=== PATIENT | male | born 1980 | race Caucasian/White ===

== ENCOUNTER 2024-11-28 17:26 | Emergency (ER) | payer BC, SELFPAY ==
--- NOTE | 2024-11-28 17:36 | ED_ITS ---
HPI - General Adult General Chief complaint: General Medical Stated complaint: food stuck in throat Time Seen by Provider: 11/28/24 20:24 Source: patient, RN notes reviewed and old records reviewed Mode of arrival: ambulatory Limitations: no limitations History of Present Illness ED Provider: Anamika HPI narrative: 44-year-old male presents for evaluation of I think there is steak stuck in my throat. Patient reports that he had several bites of steak prior to arrival. He reports on the 2nd bite he felt as if a piece got stuck in his chest. he states that this has happened before but not as severe he has tried to drink water but everything has come back up he has never had any endoscopy he reports that his father has similar issues Related Data Allergies Allergy/AdvReac Type Severity Reaction Status Date / Time No Known Allergies Allergy Verified 11/28/24 17:38 [No Known Allergies*] Review of Systems 2 Constitutional: Constitutional: Denies body ache(s), Denies chills, Denies fever(s) and Denies headache(s) Eyes: Eyes: Denies blurry vision ENT: Denies vertigo, Denies dizziness and Denies headache(s) Comments: feels something stuck in throat Cardiovascular: Cardiovascular: Denies chest pain and Denies dyspnea Respiratory: Respiratory: Denies dyspnea Neurologic: Denies vertigo, Denies dizziness and Denies headache(s) PMF Social History Social History Smoked in Last 30 Days: No Use of substances other than those prescribed or required for medical reasons: No Advance Directives: No Advance Directives Information Provided: Yes Do you have a plan to hurt others: No Plan Physical Exam ED Vital Signs: Vital Signs - 24 hr 11/28/24 17:37 11/28/24 17:45 11/28/24 18:55 Temperature 98 F 98.4 F 97.7 F Pulse Rate 90 80 78 Respiratory Rate 16 14 18 Blood Pressure 151/91 H 145/98 H 127/86 Pulse Oximetry 98 97 95 Oxygen Delivery Method Room Air Room Air Room Air 11/28/24 20:14 11/28/24 20:45 Temperature 97.3 F 97.3 F Pulse Rate 67 67 Respiratory Rate 16 16 Blood Pressure 121/76 121/76 Pulse Oximetry 96 96 Oxygen Delivery Method Room Air Room Air BMI result Body Mass Index 25.8 Const General: healthy appearing, comfortable, no acute distress, alert and awake Nutritional Appearance: well nourished Orientation/consciousness: patient oriented x3 HENMT Head: Yes normocephalic and Yes atraumatic Eyes Eyelids: Yes eyelids normal Conjunctivae: conjunctivae normal Sclerae: sclerae normal Corneas: corneas normal Pupils: Equal, round and reactive pupils present EOM: EOMs intact bilaterally Neck Neck: Yes full ROM Resp Effort & Inspection: normal respiratory effort, able to speak in complete sentences and not labored Skin General skin exam: elasticity normal Neuro General: patient oriented x3 Cranial nerves: Yes Equal, round and reactive pupils present and Yes Bilaterally intact EOM present Cognition (Neuro): normal cognition Extrem Other: Moving all extremities well without any obvious deformities Course Course Course Narrative: RME performed by Renetta Edwards PA-C. Patient is a 44 year old assigned male at presenting to the emergency department with a piece of food stuck in his esophagus. Detailed physical exam and review of systems are deferred to the practice clinician. director radio news aware. Medications Administered Discontinued Medications Generic Name Dose Route Start Last Admin Trade Name Yen PRN Reason Stop Dose Admin Glucagon 1 mg 11/28/24 17:40 11/28/24 18:02 Glucagon Hcl 1 Mg Vial IVPUSH 11/28/24 17:41 1 mg ONCE ONE Administration Ondansetron HCl 4 mg 11/28/24 18:17 11/28/24 18:22 Ondansetron Hcl 4 Mg/2 Ml Vial IVPUSH 11/28/24 18:18 4 mg ONCE ONE Administration Medical Decision Making Medical Decision Making [facility] Narrative: 44-year-old healthy male presents for evaluation of a foreign body sensation in his throat. He was eating steak when he became acutely unable to swallow. He received IV glucagon from triage and some Zofran. He has been in the ER for approximately 3 hours before my evaluation and he reports that the foreign body sensation has resolved. I had him drink a glass of water in front of me and he was able to do so without any difficulty. At this time the patient is stable for discharge and he will be referred to GI for endoscopy and possible dilatation if there are any strictures or dysmotility. he was strongly encouraged to consume very small bites of food Differential Diagnosis Differential Diagnoses: The differential diagnosis associated with the presentation includes esophageal dysmotility Achalasia Food bolus esophageal stricture Lab Data 11/28/24 18:00 11/28/24 18:00 Labs: Lab Results 11/28/24 Range/Units 18:00 WBC 7.1 (4.8-10.8) X10*3/uL RBC 4.88 (4.60-5.80) X10*6/uL Hgb 14.3 (14.0-18.0) g/dl Hct 42.4 (42.0-52.0) % MCV 86.9 (80.0-98.0) fL MCH 29.3 (27.0-33.0) pg MCHC 33.7 (31.0-36.0) g/dl RDW 12.1 (11.0-16.0) % Plt Count 326 (160-400) X10*3/uL MPV 9.4 (9.4-12.4) fL Immature Gran % (Auto) 0.3 (0.0-0.4) % Neut % (Auto) 59.6 (45-73) % Lymph % (Auto) 27.8 (20-40) % [place] % (Auto) 7.2 (2-11) % Eos % (Auto) 4.8 H (0-4) % Baso % (Auto) 0.3 (0-2) % Lymph # (Auto) 2.0 (1.2-4.9) X10*3/uL [place] # (Auto) 0.5 (0.1-1.2) X10*3/uL Eos # (Auto) 0.3 (0.0-0.4) X10*3/uL Baso # (Auto) 0.0 (0.0-0.2) X10*3/uL Abs Immat Gran (auto) 0.02 (0.00-0.03) X10*3/uL Absolute Neuts (auto) 4.2 (2.0-8.3) x10*3/uL Absolute Nucleated RBC 0.000 (0.0-0.012) X10*3/uL Nucleated RBC % (auto) 0.0 (0.0-0.2) /100WBC Sodium 140 (135-145) mmol/L Potassium 3.6 (3.3-5.1) mmol/L Chloride 102 (96-108) mmol/L Carbon Dioxide 28 (22-29) mmol/L Anion Gap 14 (12-20) BUN 17 H (9-16) mg/dL Creatinine 1.19 (0.5-1.4) mg/dL Estim Creat Clear Calc 90.1 Estimated GFR > 60 Random Glucose 121 H (60-115) mg/dL Calcium 9.7 (8.4-10.2) mg/dL Magnesium 1.9 (1.6-2.6) mg/dL Total Bilirubin 0.4 (0.0-1.0) mg/dL AST 20 (5-37) U/L ALT 15 (0-40) U/L Alkaline Phosphatase 60 (39-117) U/L Total Protein 7.8 (6.5-8.0) g/dL Albumin 4.5 (3.5-5.0) g/dL Discharge Plan Discharge Clinical Impression: Esophageal dysmotility Patient Disposition: Home, Self-Care Instructions: Food Impaction (ED) Additional Instructions: It is likely that you had a food impaction due to either scar tissue or in esophagogastric junction that does not open all the way. I recommend sticking to a liquid diet and very small bites of food you need to follow up with GI at the number provided, call tomorrow as you will likely need an endoscopy Referrals: Marty Argueta MD [Physician] - (esophageal dysmotility. ?emdoscopy) Interventions: ED Discharge Assessment Last Done: 11/28/24 20:45 Discharge Date/Time: 11/28/24 20:49 Print Language: Norwegian
[2024-11-28 17:37] VITALS: BP 151/91; PULSE 90; RESP 16; TEMP 36.6; O2SAT 98; BMI 25.8
[2024-11-28 17:45] VITALS: BP 145/98; PULSE 80; RESP 14; TEMP 36.9; O2SAT 97
[2024-11-28] MEDS: glucagon HCL 1 MG VIAL IVPUSH (18:02)
[2024-11-28 18:07] LABS: MANUAL DIFF FLAG NO
[2024-11-28 18:11] LABS: Basophils Percent Auto 0.3 % (0-2); Eosinophils Absolute Auto 0.3 X10*3/uL (0.0-0.4); Eosinophils Percent Auto 4.8 % (0-4); Hematocrit 42.4 % (42.0-52.0); Hemoglobin 14.3 g/dl (14.0-18.0); Imm Gran Abs Auto 0.02 X10*3/uL (0.00-0.03); Imm Gran Pct Auto 0.3 % (0.0-0.4); Lymphocytes Percent Auto 27.8 % (20-40); Mean Corpuscular HGB Conc 33.7 g/dl (31.0-36.0); Mean Corpuscular Hemoglobin 29.3 pg (27.0-33.0); Mean Corpuscular Volume 86.9 fL (80.0-98.0); Mean Platelet Volume 9.4 fL (9.4-12.4); Monocytes Absolute Auto 0.5 X10*3/uL (0.1-1.2); Monocytes Percent Auto 7.2 % (2-11); Neutrophils Absolute Auto 4.2 x10*3/uL (2.0-8.3); Neutrophils Percent Auto 59.6 % (45-73); Platelet Count 326 X10*3/uL (160-400); Red Blood Count 4.88 X10*6/uL (4.60-5.80); Red Cell Distribution Width 12.1 % (11.0-16.0); White Blood Count 7.1 X10*3/uL (4.8-10.8)
[2024-11-28] MEDS: ondansetron HCL 4 MG/2 ML VIAL IVPUSH (18:22)
[2024-11-28 18:30] LABS: Alanine Aminotransferase 15 U/L (0-40); Albumin Level 4.5 g/dL (3.5-5.0); Anion Gap 14 (12-20); Aspartate Amino Transferase 20 U/L (5-37); Bilirubin Total 0.4 mg/dL (0.0-1.0); Blood Urea Nitrogen 17 mg/dL (9-16); Calcium 9.7 mg/dL (8.4-10.2); Carbon Dioxide 28 mmol/L (22-29); Chloride 102 mmol/L (96-108); Creatinine Clr Calc Pharmacy 90.1; Estimated Glomerular Filt Rate > 60; Glucose Random 121 mg/dL (60-115); Magnesium 1.9 mg/dL (1.6-2.6); Potassium 3.6 mmol/L (3.3-5.1); Sodium 140 mmol/L (135-145); Total Protein 7.8 g/dL (6.5-8.0)
--- NOTE | 2024-11-28 18:35 | PC.NURSE ---
Patient A&O x 4. Patient presented to ED c/o food being stuck in throat. Denies SOB, O2 97% RA. Patient c/o chest discomfort rated 3/10. Patient vomited a large amount non bloody at restaurant. Patient continues to be nauseous. 20G in left FA. IV zofran given with good effect. No episodes of vomiting while in ED. Parents are at bedside. Plan of care on going
[2024-11-28 18:38] LABS: Alkaline Phosphatase 60 U/L (39-117)
[2024-11-28 18:55] VITALS: BP 127/86; PULSE 78; RESP 18; TEMP 36.5; O2SAT 95
[2024-11-28 20:14] VITALS: BP 121/76; PULSE 67; RESP 16; TEMP 36.3; O2SAT 96
--- NOTE | 2024-11-28 20:14 | PC.NURSE ---
pt states he is feeling much better after medication administration and would like to go home. waiting to be seen by ED provider at this time.
--- NOTE | 2024-11-28 20:25 | PC.NURSE ---
KIMBERLY Nunez made aware that patient feels better and is ready to go home. Pt given water cup to see if he can tolerate po well.
[2024-11-28 20:45] VITALS: BP 121/76; PULSE 67; RESP 16; TEMP 36.3; O2SAT 96
== END 2024-11-28 20:49 | disposition home or self-care (01) ==
PROVIDERS: Physician Assistant Medical; Emergency Provider Emergency Medicine Emergency Medical Services; PCP Family Medicine
DX: K22.4 Dyskinesia of esophagus (principal); R09.89 Other specified symptoms and signs involving the circulatory and respiratory systems; Z79.899 Other long term (current) drug therapy
CPT/HCPCS: 36415; 80053; 83735; 85025; 96374; 99284; J1610; J2405

== ENCOUNTER 2025-04-20 13:05 | Outpatient (AMB) | payer BC, SELFPAY ==
--- NOTE | 2025-04-20 13:10 | A.OFFVIS_ITS ---
Vital Signs 04/20/25 13:12 Height 6 ft 2 in Weight 200 lb 9.93 oz BMI 25.8 BP 129/81 Blood Pressure Location Lt brachial Position Sitting Pulse 76 Intake Visit Reasons: hyperlipidemia Intake Note: Roberto Carlos presents in the office as a follow up for hyperlipidemia. CC: STates that on mothers day he had choking and choked bad to brought the the ED. States he has it when it runs in his family for narrowing of the esophgus. Father has the same issue and always needs to have the EGD with Dilation. Court Manager Required: No Allergies No Known Allergies (No Known Allergies*) Allergy (Verified 04/20/25 13:11) HPI HPI hyperlipidemia: Details: 44 years old male with no significant past medical history is here today for initial consultation. Patient was sent to us by his PCP for evaluation of his dysphagia. Patient was seen on mother's Day in the ER for choking a mistake. Patient reports that the 1st bites that he took of the stay got lodged in his lower esophagus. Patient was given glucagon 1 mg IV and Zofran 4 mg IV. Patient states for 3 hours in the ER and past swallow test done at bedside by RN patient was sent home. Patient reports that he does have a trouble swallowing mainly rice, bread, meat. Patient does admit that he eats very fast. He was told before chew his food better and swallow slowly. Patient denies any nausea or vomiting. Patient reports that when he feels that the food gets stuck he many times make himself vomit to get the food out. Patient denies having any of acid reflux. Denies dyspepsia or odynophagia. Patient reports he is moving his bowels well. Otherwise patient denies having any GI concerning symptoms. Patient is up-to-date with colonoscopy had one last year. [facility], [facility] Medical History (Updated 04/20/25 @ 20:12 by DAVIE Osullivan) Dysphagia Surgical History (Updated 04/20/25 @ 13:13 by YUE Andrade) Hx of colonoscopy Review of Systems Const Denies weight gain and Denies weight loss ENT Reports no additional complaints, Reports dysphagia and Denies odynophagia Card Reports no additional complaints Resp Reports no additional complaints GI Denies abdominal pain, Denies belching, Denies melena, Denies bloating, Denies change in bowel habits, Reports dysphagia, Denies excessive flatus, Denies dyspepsia, Denies heartburn, Denies diarrhea, Denies loose stools, Denies nausea, Denies odynophagia and Denies vomiting Reports no additional complaints Musc Reports no additional complaints Neuro Reports no additional complaints Psych Reports no additional complaints Endo Reports no additional complaints Physical Exam Vital Signs: Last Vital Signs Pulse 76 04/20/25 13:12 BP 129/81 04/20/25 13:12 BMI result Body Mass Index 25.8 Const General: healthy appearing, no acute distress and well developed Nutritional Appearance: well nourished Orientation/consciousness: patient oriented x3 Resp Effort & Inspection: normal respiratory effort, able to speak in complete sentences, no tracheal deviation and symmetric chest movement Auscultation: clear to auscultation bilaterally Cardio Rate: regular rate GI Inspection: Yes normal to inspection and No distended Palpation (GI): Soft to palpation, not firm, nontender and No hepatosplenomegaly present Auscultation: normal bowel sounds General: Yes no CVA tenderness Back/Spine/Pelvis Back: no CVA tenderness Skin General skin exam: elasticity normal, turgor normal and dry skin Neuro General: patient oriented x3 Psych Appearance: grossly normal Mental Status: mental status grossly normal Assessment & Plan Assessment & Plan (1) Dysphagia: Code(s): R13.10 - Dysphagia, unspecified Category: Medical Qualifiers: Dysphagia type: esophageal phase Qualified Code(s): R13.19 - Other dysphagia Plan Patient will be scheduled for upper endoscopy to rule out Schatzki ring, esophageal narrowing, achalasia, esophagitis. Patient will be sent for upper GI with barium swallow. We can rule out esophageal spasm, reflux, hiatal hernia/paraesophageal hernia. I will start him on omeprazole daily. Patient's insurance does not cover this medication. Script sent to [facility] and patient will use good Rx coupon. Discussed with patient the importance of chewing his food and swallowing slowly. Drinking water with every bite. I voiced dietary triggers only 10 seconds. Staying upright for minimum 3 hours after meals discussed with patient. I will see patient after the procedure, sooner on as needed basis. Patient is agreeable to current plan of care and verbalizes understanding of instructions. He was given the opportunity to ask questions and all questions answered. Thank you for allowing me to participate in his care Orders: Orders FL upper GI w air w Ba Swallow Today K21.9 - Gastro-esophageal reflux disease without esophagitis Referrals GI Procedure Notification R13.10 - Dysphagia, unspecified Medications: New omeprazole 20 mg PO DAILY 30 caps 3RF K21.9 - Gastro-esophageal reflux disease without esophagitis omeprazole 20 mg PO DAILY 30 caps 3RF K21.9 - Gastro-esophageal reflux disease without esophagitis Coding Level of Care Code New Pt Level 3 (98381) Diagnoses Esophageal dysphagia R13.19 Dysphagia type: esophageal phase Time Spent (min) 40 Comment 30 minutes spent with patient and additional 10 minutes spent reviewing his records
[2025-04-20 13:12] VITALS: BP 129/81; PULSE 76; BMI 25.8
--- OUTSIDE RECORDS SUMMARY | 2025-04-20 14:23 | XMS_ITS | Clinical Summary ---
Author Organization [facility] Address [address] [place] [phone] Phone Care Team Providers Care Manager Net Name Role Phone Davie Ayoub MD Primary Care Provider [phone] Allergies No known active allergies Medications cholecalciferol (VITAMIN D3) 25 MCG (1,000 unit) tablet Take 1,000 Units by mouth daily. Active Active Problems Problem Noted Date Diagnosed Date Adenomatous polyp of descending colon 11/09/2024 Overview (11/09/2024): Rectal polyps x 2 Abnormal fasting glucose 11/04/2023 Other hyperlipidemia 11/04/2023 Assessment & Plan (11/22/2024 2:01 PM EDT): Orders: Lipid panel; Future I reviewed indications for starting statin. His LDL is greater than 200. He is at higher risk for CV events. With that in mind he would like to give lifestyle changes a chance and I offered this is an option. He will continue to work on portion size and try and make better food selections. Repeat fasting lipid panel in 4 months I will get back to them with recommendations. I recommended statin but he declines today. Multiple nevi 11/04/2023 Overview (11/04/2023): Sees produce service team member at [facility] annually Resolved Problems Problem Noted Date Diagnosed Date Resolved Date Mild depression 07/03/2018 11/04/2023 Immunizations Immunization Administration Dates Next Due Influenza Quadrivalent MDCK Preservative Free IM 05/30/2022 Influenza Quadrivalent Preservative Free IM 04/20,04/17/2020 Influenza Quadrivalent w/ Preservative IM 2016 Influenza, Unspecified Formulation 05/06/2018 Td (adult),2 Lf Tetanus Toxoid, PF, Adsorbed Tdap 12/02/2012 Family History Medical History Relation Comments No Known Problems Brother 1 No Known Problems Brother 2 Arrhythmia Father Pacemaker Father Lung disease Maternal Grandfather No Known Problems Mother Anxiety disorder Paternal Grandmother Stroke Paternal Grandmother No Known Problems Sister No Known Problems Son 1 No Known Problems Son 2 Relation Status Comments Brother 1 Alive Brother 2 Alive Father Alive Maternal Grandfather Maternal Grandmother Alive Mother Alive Paternal Grandfather Paternal Grandmother Sister Alive Son 1 Alive Son 2 Alive Social History Tobacco Use Types Packs/Day Years Used Date Smoking Tobacco: Never Smokeless Tobacco: Never Tobacco Cessation:Counseling Given: Not Answered Alcohol Use Standard Drinks/Week Comments Yes 0 (1 standard drink = 0.6 oz pure alcohol) socially, very rare. Couple times a month Child or Family Care Answer Date Record ed Do you have problems with on e of the following making it difficult for you to work, study, or receive health care? No 11/09/2024 Education Answer Date Recorded Are you interested in help w ith more adult education (for example, completing high school, GED, job training, learning the [place] language, technical skills, or developing parenting skills)? No 11/09/2024 Are you concerned about learning? Not on file 11/09/2024 No 11/09/2024 Yes 11/09/2024 Food Answer Date Recorded Within the past 6 months we worried whether our food would run out before we got money to buy more. Never True 11/09/2024 Within the past 6 months the food we bought just didn't last and we didn't have enough money to get more. Never True Residential Stability Answer Date Recor ded What is your housing situation today? I have calos sing 11/09/2024 How many times have you move d in the past 12 months? Zero (I did not move) 11/09/2024 Paying for Meds Answer Date Recorded Do you have trouble paying for medicines? No 11/09/2024 Paying Utility Bills Answer Date Record ed Do you have trouble paying your heating or elect ricity bill? No 11/09/2024 Transportation Answer Date Recorded Has the lack of transportati on kept you from medical appointments or from getting medications? No 11/09/2024 Unemployment Answer Date Recorded Are you currently unemployed or working on a part-time or temporary basis, and looking for work? No 10/22/2022 Digital Access Answer Date Recorded No 11/09/2024 Yes 11/09/2024 Do you have reliable internet access at home? Ye s 11/09/2024 Do you have a device (e.g., phone, tablet, computer) with a working camera? Yes 11/09/2024 Intimate Partner Violence Answer Date R ecorded Denied Basic Needs Not on file 11/09/2024 In the past 12 months have y ou been in a relationship with a person who hurts, threatens, or tries to control you? No 11/09/2024 Worried food would run out Not on file 11/09 In the past 12 months have y ou been in a relationship with a person who hurts, threatens, or tries to control you? No 11/09/2024 Sex and Gender Information Value Date Recorded Sex Assigned at Not on file Legal Sex Male 10:30 PM EDT Gender Identity Not on file Sexual Orientation Not on file Last Filed Vital Signs Vital Sign Reading Time Taken Comments Blood Pressure 120/78 11/09/2024 7:44 AM EDT Pulse 81 11/09/2024 7:44 AM EDT Temperature 36.2 C (97.1 F) 11/09/2024 7:44 AM EDT Respiratory Rate 16 09/14/2019 2:02 PM EST Oxygen Saturation 97% 11/09/2024 7:44 AM EDT Inhaled Oxygen Concentration - - Weight 95.1 kg (209 lb 9.6 oz) 11/09/2024 7:44 A M EDT Height 185 cm (6' 0.84 ) 11/09/2024 7:44 AM EDT Body Mass Index 27.78 11/09/2024 7:44 AM EDT Plan of Treatment Upcoming Encounters Date Type Department Care Team (Late st Contact Info) Description 11/14/2025 8:00 AM EDT Office Visit [facility] Medicine [address] [place] [address] [place] [address] Davie Ayoub MD [address] [place] [address] [email or web address] Health Maintenance Due Date Last Done Comments COLOGUARD 2023 FIT TEST 2023 FOBT 2023 SIGMOIDOSCOPY 2023 VIRTUAL COLONOSCOPY 2023 INFLUENZA VACCINE (#1) 2025 , 05/01/2021, 04/17/2020, Additional history exists COVID-19 VACCINE (2024- season) 2025 05/30/2022, 06/21/2021, 10/29/2020 DEPRESSION SCREENING 11/09/2025 11/09/2024, 05/08/20 18 SCREENING FOR DIABETES 11/10/2027 11/09/2024, 2024 LIPID PANEL 11/09/2029 11/09/2024, 04/21, 11/04/2023, Additional history exists Adult Td,Tdap Booster 11/12/2029 11/13/2019, 013 COLONOSCOPY 03/08/2031 03/08/2024 COLORECTAL CANCER SCREENING 03/08/2031 HEPATITIS C SCREENING Completed 10/10/2020 HIV ONE-TIME SCREENING (18-65 YEARS) Completed 10/10/2020 SMOKING STATUS SCREENING (Once After 26 Yrs) Completed 11/09/2024 HEPATITIS A VACCINES Aged Out No long er eligible based on patient's age to complete this topic HIB VACCINES Aged Out No longer eligi ble based on patient's age to complete this topic MENINGOCOCCAL VACCINES (ACWY) Aged Out No longer eligible based on patient's age to complete this topic MENINGOCOCCAL VACCINES (B) Aged Out N o longer eligible based on patient's age to complete this topic PNEUMOCOCCAL VACCINES (0-49 years) Aged Out No longer eligible based on patient's age to complete this topic Medical Devices Not on file Procedures Procedure Name Priority Date/Time Associated Diagnosis Comments LIPID PANEL Routine 11/09/2024 8:16 AM EDT Other hyperlipidemia COLONOSCOPY FOR RESULT ENTRY ONLY Routine 03/08/2024 2:07 PM EDT HEPATITIS C ANTIBODY, QUALITATIVE Routine 10/10/2020 10:22 AM EDT Routine general medical examination at a health care facility from Last 3 Months or Most Recently Relevant to Health Maintenance Results * (ABNORMAL) Lipid panel (11/09/2024 8:16 AM EDT) HDL 43 mg/dL [facility] Comment: Interpretation <40 mg/dL: Low HDL cholesterol (major risk factor for CHD) Greater than or equal to 60 mg/dL: High HDL cholesterol ( negative risk factor for CHD) HDL - cholesterol is affected by a number of factors, e.g. smoking, excerise, hormones, sex and age. CHOLESTEROL 266(H) 0 - 240 mg/dL [facility] TRIGLYCERIDES 108 30 - 160 mg/dL [facility] LDL 201(H) 50 - 129 mg/dL [facility] Comment: LDL levels in terms of risk for coronary heart disease: <100 mg/dL: Optimal 100-129 mg/dL: Near or above optimal 130-159 mg/dL: Borderline high 160-189 mg/dL: High >190 mg/dL: Very High CARDIAC RISK RATIO 6.2(H) 3.4 - 5.0 C [facility] Blood 11/09/2024 8:16 AM EDT 11/09/2024 8:25 AM EDT Davie Ayoub MD LAB BLOOD ORDERABLES Final Result [address] [id number] * COLONOSCOPY FOR RESULT ENTRY ONLY (03/08/2024 2:07 PM EDT) us Viky Provider HEALTH MAINTENANCE Edited Result - Final * Hepatitis C antibody, qualitative (10/10/2020 10:22 AM EDT) HCV NON-REACTIV E NON-REACTI VE [facility] Blood 10/10/2020 10:2 2 AM EDT 10/10/2020 10:26 AM EDT us Lani Mota NP LAB BLOOD ORDERABLES Final Resu lt [facility] [address] [place] [address] from Last 3 Months or Most Recently Relevant to Health Maintenance Insurance [employer] [facility] [employer] [facility] [employer] [facility] [employer] [facility] [employer] [facility] [employer] [facility] Care Teams Manager Net Relationship Specialty Start Date End Date Davie Ayoub MD [address] [place] [address], [address] [place] [address] [email or web address] PCP - General Family Medicine 09/24/23 Additional Source Comments The information contained in this document represents components of the legal health record. It is not the complete legal health record.[facility]
--- OUTSIDE RECORDS SUMMARY | 2025-04-20 14:23 | XMS_ITS ---
Author Name Juliana Wen Address Unknown Organization [facility] Care Team Providers Care Relief Mate Name Role Phone Unavailable Primary Care Physician Unavailab le History Of Present Illness This is a 44 year old male who is an established patient who is being seen for an evaluation of skin lesions.Location: body throughoutDuration: yearsPertinent Negatives: no history of previous skin cancer, no history of melanoma, and no family history of melanomaAdditional Visit Reasons: education and counseling about sun exposure, evaluation for suspicious growths, and evaluation of current neviAdditional History: Patient presents for a complete skin examination. Denies any areas of concern today.Of note: may need a refill of ciclopirox Medications Medication Generic Name RxNorm Strength Strength Unit Route Dose Dose Form Frequency Date Started Date Ended Status Indication Sig ciclopirox ciclopir ox 382721 0.77 % Topica l cream BID 05/05/20 19 suspend ed TINEA VERSICOLOR Appl y am and pm rash uppe r back and shou lder for 4 week s unti l silviano r ciclopirox ciclopir ox 535153 0.77 % Topica l small amoun t cream PRN 12/01/19 24 active Appl y AM and PM to [facility] hes on back and shou lder s for 4 week s unti l silviano r Ciclopirox Olamine NULL 10/04/19 16 suspend ed Oxistat NULL 12/17/19 12 active PredniSONE NULL 10/04/19 16 active Problems Problem Code Type Status Date of Diagnosis Date of Resolution Neoplasm of uncertain behavior of skin (disorder) 65076604(SN OMED) Diagnosis active 04/18/2025 Hemangioma of skin and subcutaneous tissue (disorder) 710942697(S NOMED) Diagnosis active 04/18/2025 Seborrheic keratosis (disorder) 474888036(S NOMED) Diagnosis active 04/18/2025 Disorder of pigmentation (disorder) 632968302(S NOMED) Diagnosis active 04/18/2025 Melanocytic nevus of trunk (disorder) 854097784(S NOMED) Diagnosis active 04/18/2025 Melanocytic nevus of right upper limb (disorder) 778957843(S NOMED) Diagnosis active 04/18/2025 Patient encounter status (finding) 533625430(S NOMED) Diagnosis active 04/18/2025 Pityriasis versicolor (disorder) 25209204(SN OMED) Diagnosis active 04/18/2025 Surgical follow-up (finding) 386698795(S NOMED) Diagnosis active 05/21/2024 Neoplasm of uncertain behavior of skin (disorder) 38648661(SN OMED) Diagnosis active 05/13/2024 Neoplasm of uncertain behavior of skin (disorder) 19084411(SN OMED) Diagnosis active 01/21/2024 Hemangioma of skin and subcutaneous tissue (disorder) 224562826(S NOMED) Diagnosis active 12/01/2023 Seborrheic keratosis (disorder) 625502851(S NOMED) Diagnosis active 12/01/2023 Disorder of pigmentation (disorder) 005987147(S NOMED) Diagnosis active 12/01/2023 Melanocytic nevus of trunk (disorder) 217362982(S NOMED) Diagnosis active 12/01/2023 Follicular cysts of skin and subcutaneous tissue (disorder) 676756826(S NOMED) Diagnosis active 12/01/2023 Patient encounter status (finding) 604601670(S NOMED) Diagnosis active 12/01/2023 Pityriasis versicolor (disorder) 76225311(SN OMED) Diagnosis active 12/01/2023 Hemangioma of skin and subcutaneous tissue (disorder) 460792452(S NOMED) Diagnosis active 09/12/2022 Seborrheic keratosis (disorder) 516195985(S NOMED) Diagnosis active 09/12/2022 Disorder of pigmentation (disorder) 382460018(S NOMED) Diagnosis active 09/12/2022 Melanocytic nevus of trunk (disorder) 854676340(S NOMED) Diagnosis active 09/12/2022 Patient encounter status (finding) 844310796(S NOMED) Diagnosis active 09/12/2022 Hemangioma of skin and subcutaneous tissue (disorder) 661615106(S NOMED) Diagnosis active 08/16/2021 Seborrheic keratosis (disorder) 476571343(S NOMED) Diagnosis active 08/16/2021 Disorder of pigmentation (disorder) 208845358(S NOMED) Diagnosis active 08/16/2021 Melanocytic nevus of trunk (disorder) 672741313(S NOMED) Diagnosis active 08/16/2021 Melanocytic nevus of face (disorder) 288229786(S NOMED) Diagnosis active 08/16/2021 Patient encounter status (finding) 576924655(S NOMED) Diagnosis active 08/16/2021 Hemangioma of skin and subcutaneous tissue D18.01(ICD- 10) Diagnosis active 07/11/2020 Other seborrheic keratosis L82.1(ICD-1 0) Diagnosis active 07/11/2020 Other melanin hyperpigmentation L81.4(ICD-1 0) Diagnosis active 07/11/2020 Melanocytic nevi of trunk D22.5(ICD-1 0) Diagnosis active 07/11/2020 Neoplasm of uncertain behavior of skin D48.5(ICD-1 0) Diagnosis active 07/09/2019 Hemangioma of skin and subcutaneous tissue D18.01(ICD- 10) Diagnosis active 07/09/2019 Other seborrheic keratosis L82.1(ICD-1 0) Diagnosis active 07/09/2019 Other melanin hyperpigmentation L81.4(ICD-1 0) Diagnosis active 07/09/2019 Melanocytic nevi of trunk D22.5(ICD-1 0) Diagnosis active 07/09/2019 Encounter for removal of sutures Z48.02(ICD- 10) Diagnosis active 06/07/2019 Epidermal cyst L72.0(ICD-1 0) Diagnosis active 05/24/2019 Neoplasm of uncertain behavior of skin D48.5(ICD-1 0) Diagnosis active 05/05/2019 Other benign neoplasm of skin of other parts of face D23.39(ICD- 10) Diagnosis active 05/05/2019 Pityriasis versicolor B36.0(ICD-1 0) Diagnosis active 05/05/2019 Other follicular cysts of the skin and subcutaneous tissue L72.8(ICD-1 0) Diagnosis active 05/05/2019 Neoplasm of uncertain behavior of skin (disorder) 96901297(SN OMED) Diagnosis active 10/04/2015 Results No data Encounters Service provided at [facility], [address] [place] [address], [address], [place], [place] [id number]. Office phonenumber is [phone]. Office fax number is [phone]. Encounter Diagnosis Location Date / Time Type Neoplasm of Uncertain Behavi or (D48.5)Whitt Angiomas (D18.01)Seborrheic Keratoses (L82.1)Lentigines (L81.4)Benign Nevi (D22.5)Benign Nevus (D22.61)Skin Education (Z71.89)Tinea Versicolor (B36.0) [facility] 04/18/2025 17:30: 00 [facility] [id number] Reason For Referral No data Procedures Procedure Date Documentation of current medications (pr ocedure) 04/18/2025 12:00 am UTC Shave biopsy (procedure) 04/18/2025 12:0 0 am UTC Removal of suture (procedure) 05/21/2024 12:00 am UTC Excision (procedure) 05/13/2024 12:00 am UTC Documentation of current medications (pr ocedure) 09/12/2022 12:00 am UTC Documentation of current medications (pr ocedure) 08/16/2021 12:00 am UTC Documentation of past medical history (p rocedure) Documentation of past medical history (p rocedure) Documentation of past medical history (p rocedure) Documentation of past medical history (p rocedure) Documentation of past medical history (p rocedure) Documentation of past medical history (p rocedure) Documentation of past medical history (p rocedure) Documentation of past medical history (p rocedure) Documentation of past medical history (p rocedure) Documentation of past medical history (p rocedure) Documentation of past medical history (p rocedure) Documentation of past medical history (p rocedure) Review Of Systems Provider reviewed on Apr 18, 2025.A focused review of systems was performed including Integumentary.No Problems With Healing And No Problems With Scarring (hypertrophic Or Keloid). Assessment 1.Neoplasm of Uncertain BehaviorPhoto-Documentation:.Biopsy by Shave Method: left superior upper back.Additional Notes2.Whitt AngiomasCounseling3.Seborrheic KeratosesCounseling4.LentiginesCounseling5.Benign NeviCounseling6.Benign NevusCounseling7.Skin EducationSunscreen Recommendations8.Tinea Versi colorCounselingPrescription: ciclopirox 0.77 % topical cream TP Frequency: BIDTreatment Regimen: Continue Regimen - Ciclopirox 0.77 % topical cream: Apply AM and PM to patches on back and shoulders for 4 weeks until clear. Plan of Care Future visit for 04/18/2026 - Follow up in 1 year for: Skin Check - 15 minutes. Other Instructions:CSE in CSE slot. Other Instructions: CSE in CSE slot. Code Detail Instructions [id number] ciclopirox 0.77 % topical cream Apply AM and PM to patches on back and shoulders for 4 weeks until clear 931065 ciclopirox 0.77 % topical cream Apply AM and PM to patches on back and shoulders for 4 weeks until clear 810631 ciclopirox 0.77 % topical cream Apply am and pm rash upper back and shoulder for 4 weeks until clear Instructions * I counseled the patient regarding the following:Expectations: Whitt Angiomas are benign vascular growths. No treatment is necessary. * I counseled the patient regarding the following:Skin Care: Seborrheic Keratoses are benign. No treatment is necessary.Expectations: Seborrheic Keratoses are benign warty growths. Patients get more ofthem as they age. * I counseled the patient regarding the following:Expectations: Lentigines are benign pigmented lesions that occur on sun-exposed and sun-damaged skin. * I counseled the patient regarding the following:Instructions: Monthly self- skin checks to monitor for any changes in moles are recommended.No treatment is necessary.Contact Office if: Any moles change in size, shape or color; itch, burn or bleed. * I counseled the patient regarding the following:Instructions: Monthly self- skin checks to monitor for any changes in moles are recommended. Reassured lesions are benign.I recommended the following: Self-Skin Exams * I counseled the patient regarding the following:Skin Care: shampoos with zinc pirithyone, selenium or ketoconazole can resolve most cases. Pulse oral antifungal therapy can treat widespread skin disease.Expectations: Tinea Versicolor is a yeast infection of the skin. It occurs in young people, and is easily treatable, but can recur.Contact office if: Tinea Versicolor spreads despite weeks of treatment. * Continue the following treatment(s): Ciclopirox 0.77 % topical cream: Apply AM and PM to patches onback and shoulders for 4 weeks until clear. Social History Code Activity Start Date End Date [id number] (SNOMED) Never smoker Sex male Sexual orientation Unspecified Gender identity Unspecified Vital Signs No data
== END 2025-04-20 13:47 | disposition home or self-care (01) ==
LOC: HO.HGI 13:06
PROVIDERS: PCP Family Medicine; Visit Provider Nurse Practitioner Family
DX: R13.19 Other dysphagia (principal)
CPT/HCPCS: 99203

== ENCOUNTER 2025-05-18 09:09 | Day surgery (SDC) | payer BC, SELFPAY ==
--- NOTE | 2025-05-16 10:25 | HO.ANESPROP2 ---
Documented by User: Misti Betts NP 05/16/25 10:26 HPI - Anesthesia Eval Consult details Narrative: 45 yr old male for upper endoscopy with balloon dilitation PMFSH Active Problems Active Problems: All Active Problems Dysphagia (Acute) Past Medical History Medical History Dysphagia Surgical History Surgical History Hx of colonoscopy Social History Social History Patient Tobacco Use Status: Never used Tobacco Use of substances other than those prescribed or required for medical reasons: No Advance Directives: No Advance Directives Information Provided: Yes Meds Allergies Allergy/AdvReac Type Severity Reaction Status Date / Time No Known Allergies (No Known Allergy Verified 04/20/25 13:11 Allergies*) Exam Pertinent Lab Results Pertinent Lab Results: Laboratory Tests 11/28/24 18:00 WBC 7.1 RBC 4.88 Hgb 14.3 Hct 42.4 Plt Count 326 Sodium 140 Potassium 3.6 Chloride 102 Carbon Dioxide 28 BUN 17 H Creatinine 1.19 Documented by User: Diane Farley MD 05/18/25 11:42 PMFSH Past Medical History Medical History Dysphagia Surgical History Surgical History Hx of colonoscopy History of Problems with Anesthesia: No Social History Social History Patient Tobacco Use Status: Never used Tobacco Use of substances other than those prescribed or required for medical reasons: No Advance Directives: No Advance Directives Information Provided: Yes Meds Allergies Allergy/AdvReac Type Severity Reaction Status Date / Time No Known Allergies (No Known Allergy Verified 04/20/25 13:11 Allergies*) Exam Airway Mallampati Class: III TM Dist: <=3cm Neck ROM: Full Loose/Missing/Broken Teeth: No Heart: RRR Lungs: CTA Assessment and Plan Assessment Anesthesia Assessment: Anesthesia Plan Discussed and Chart Reviewed Final Anesthetic Review History of Problems with Anesthesia: No NPO: Yes ASA Class: II Final Preanesthetic Review: Meds/Allgs Chart Reviewed, Consent Obtained/Reviewed and Anes Risks/Benef Reviewed Patient Risk: Low Procedure Risk: Intermediate Anesthetic Plan Anesthetic Plan: MAC: Disposition: Standard PACU
[2025-05-18 10:31] VITALS: BMI 27.3
[2025-05-18 10:43] VITALS: BP 140/88; PULSE 57; RESP 16; TEMP 36.3; O2SAT 99
[2025-05-18] MEDS: Lactated Ringers 1,000 ML 100 ML IVCONT (10:43)
--- NOTE | 2025-05-18 11:40 | MHC.SHP ---
Pre-Procedural Eval Section A - 24 Hr Update-Section A only Date of Service: 05/18/25 Section B - Complete if H&P > 30 days Chief Complaint: GERD Relevant Family History (Specify if Yes): Yes Relevant Social History: None Present Medications: see Short Stay Collaborative assessment Medical History: Significant History (dysphagia ) History of Previous Operations: Relevant previous surgery/procedure and date(s) (colonoscopy) Allergies: Allergies Allergy/AdvReac Type Severity Reaction Status Date / Time No Known Allergies (No Known Allergy Verified 04/20/25 13:11 Allergies*) Review of Systems Sugical H&P ROS: Negative: Constitution, Cardiovascular, Respiratory, Neurological, Psychiatric, Hem-Onc, Allergic/Immunologic, Gastrointestinal, Genitourinary, Musculoskeletal, Integumentary, Endocrine and Eyes/Ears/Nose/Throat Exam Surgical H&P Exam: Normal: HEENT, Normal: Heart, Normal: Lungs, Normal: Extremities, Normal: Abdomen, Normal: Skin and Normal: Neurological Plan Diagnosis/Plan: Unchanged I have reviewed the history and physical and performed a pertinent physical examination on my patient. No changes have occurred unless specified. Time Spent With Patient Time: Total time managing care of this patient today ____ minutes.
--- NOTE | 2025-05-18 12:05 | W.PM.OPN ---
Operative Note Operative Note Date of Service: 05/18/25 Narrative: Procedure Description: EGD Indication: dysphagia Anesthesia: MAC FLEXIBLE TRANSORAL UPPER GASTROINTESTINAL ENDOSCOPY UPPER ENDOSCOPY Consent: Indications for the procedure and potential complications of bleeding, perforation, reaction to medications and missed diagnosis were discussed with the patient and informed consent was obtained. Instrument: Olympus GIF H 190 J mid size upper endoscope Monitoring: Vital signs and clinical assessment, continuous EKG monitoring, Pulse oximetry, Carbon Dioxide monitoring and blood pressure monitoring were done throughout the procedure. Procedure: The patient was placed in the left lateral decubitis position and pre-procedure medications were administered and a bite block was placed. The endoscope was inserted into the mouth and advanced under direct vision to the third part of duodenum. A careful inspection was made as the upper endoscope was withdrawn including a retroflexed examination of the proximal stomach; Findings and interventions are described below. Findings: Larynx:normal Esophagus: GE junction at 40 cm, diaphragm hiatus at 40 cm, possible short segment barretts, bx taken from GEJ, distal/proximal esophagus due to ringed and furrowed appearance, balloon dilation to 19 mm without tears seen. The LES was slightyl lax. schatzki ring noted Stomach: patchy erythema . Biopsies were obtained. Grade 2 flap valve on retroflexed examination of the cardia. Pylorus was a little tight, using wire guided balloon it was dilated to 10 mm without tears seen Duodenum: Normal bulb and descending duodenum, bx taken Intervention: Biopsies as noted above, wire and non wire guided balloon dilation Impression/Findings: gastritis esophagitis and possible barretts patulous GEJ schatzki ring PLAN: just started PPI--should cont GERD precautions
[2025-05-18 12:13] VITALS: BP 106/72; PULSE 73; RESP 16; TEMP 36.5; O2SAT 95
[2025-05-18 12:28] VITALS: BP 106/73; PULSE 73; RESP 16; O2SAT 98
[2025-05-18 12:43] VITALS: BP 108/73; PULSE 62; RESP 16; O2SAT 98
[2025-05-18 12:58] VITALS: BP 121/85; PULSE 60; RESP 16; TEMP 36.2; O2SAT 99
== END 2025-05-18 13:57 | disposition home or self-care (01) ==
PROVIDERS: PCP Family Medicine; Visit Provider Internal Medicine Gastroenterology
PROC: (CPT 43239; principal; 2025-05-18 12:20)
DX: R13.10 Dysphagia, unspecified (principal); K29.70 Gastritis, unspecified, without bleeding; K22.89 Other specified disease of esophagus; K31.89 Other diseases of stomach and duodenum; K20.90 Esophagitis, unspecified without bleeding; K22.2 Esophageal obstruction; Q40.8 Other specified congenital malformations of upper alimentary tract
CPT/HCPCS: 43239; 43249; 43245; 88305; 88313; 88342; C1726; J2704

== ENCOUNTER → 2025-05-18 09:09 | Outpatient (BNV) | payer BC, SELFPAY | PROVIDERS: PCP Family Medicine; Visit Provider Internal Medicine Gastroenterology | DX: K22.2 Esophageal obstruction (principal); K20.90 Esophagitis, unspecified without bleeding | CPT/HCPCS: 43239; 43249 ==

== ENCOUNTER 2025-06-15 08:52 | Outpatient (REF) | payer BC, SELFPAY ==
--- OUTSIDE RECORDS SUMMARY | 2025-06-15 09:20 | XMS_ITS | Clinical Summary ---
Author Organization [facility] Address [address] [facility] [address] [place] [phone] Phone Care Team Providers Care Muffler Installer Name Role Phone Davie Ayoub MD Primary Care Provider [phone] Allergies No known active allergies Medications cholecalciferol [...] today. 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 [...] Description 11/14/2025 8:00 AM EDT Office Visit [facility] [address] [place] [address] [place] [address] Davie Ayoub MD [address] [facility] [place] [address] [email or web address] Health Maintenance Due Date Last Done Comments [...] (11/09/2024 8:16 AM EDT) HDL 43 mg/dL [facility] Comment: Interpretation <40 mg/dL: Low HDL cholesterol (major risk factor for CHD) Greater than or equal to 60 mg/dL: High HDL cholesterol ( negative risk factor for CHD) HDL - cholesterol is affected by a number of factors, e.g. smoking, excerise, hormones, sex and age. CHOLESTEROL 266(H) 0 - 240 mg/dL [facility] TRIGLYCERIDES 108 30 - 160 mg/dL [facility] LDL 201(H) 50 - 129 mg/dL [facility] Comment: LDL levels in terms of risk for coronary heart disease: <100 mg/dL: Optimal 100-129 mg/dL: Near or above optimal 130-159 mg/dL: Borderline high 160-189 mg/dL: High >190 mg/dL: Very High CARDIAC RISK RATIO 6.2(H) 3.4 - 5.0 C [facility] Blood 11/09/2024 8:16 AM EDT 11/09/2024 8:25 AM EDT Davie Ayoub MD LAB BLOOD BKR ORDERABLES F inal Result [address] [address] * COLONOSCOPY FOR RESULT ENTRY ONLY (03/08/2024 2:07 PM EDT) us Historical Provider HEALTH MAINTENANCE Edited Result - Final * Hepatitis C antibody, qualitative (10/10/2020 10:22 AM EDT) HCV NON-REACTIV E NON-REACTI VE [facility] Blood 10/10/2020 10:2 2 AM EDT 10/10/2020 10:26 AM EDT us Lani Mota NP LAB BLOOD BKR ORDERABLES Final Result Performing Organization Address City/State/[facility] Co de Phone Number [facility] [address] [place] [address] from Last 3 Months or Most Recently Relevant to Health Maintenance Insurance FAB BAG FAB BAG FAB BAG [employer] [facility] [employer] [facility] [employer] [facility] [employer] [facility] FAB BAG FAB BAG Care Teams Muffler Installer Relationship Specialty Start Date End Date Davie Ayoub MD [address] [place] [address], [address] [place] [id number] [email or web address] PCP - General Family Medicine 09/24/23 Additional Source Comments The information contained in this document represents components of the legal health record. It is not the complete legal health record.[facility]
[2025-06-17 15:39] LABS: Class Almond 2; Class Brazil Nut 0/1; Class Cashew 0/1; Class Codfish 0; Class Cow's Milk 3; Class Egg white 3; Class Hazelnut 2; Class Macadamia Nut 2; Class Peanut 2; Class Salmon 0; Class Scallop 0/1; Class Sesame Seed 2; Class Shrimp 0/1; Class Soybean 2; Class Tuna 0; Class Walnut 2; Class Wheat 3; F345-IgE Macadmia Nut 0.82 kU/L
== END 2025-06-15 08:53 | disposition home or self-care (01) ==
LOC: HO.LAB 08:52
PROVIDERS: PCP Family Medicine; Visit Provider Internal Medicine Gastroenterology
DX: Z91.018 Allergy to other foods (principal)
CPT/HCPCS: 36415; 86003